=== PATIENT | female | born 1995 | race Caucasian/White ===

== ENCOUNTER 2024-06-17 19:01 | Outpatient (OUT) | payer BC, SELFPAY ==
--- NOTE | 2024-06-17 19:04 | US_ITS ---
[address] [address] Patient Name: JENNIFER MORALES MRN: [id number] date: 1995 Sex: F Assigned Patient Location: [place] Current Patient Location: Accession/Order Number: [id number] Exam Date: 06/17/2024 19:09 Report Date: 06/18/2024 05:04 At the request of: WALLY BLANTON Procedure: US pelvis w/ transvaginal EXAMINATION: US pelvis w/ transvaginal HISTORY: PELVIC PAIN IN FEMALE R10.2 ; intermittent pelvic pain for one year COMPARISON: Ultrasound pelvis 11/15/2023 TECHNIQUE: Transabdominal and/or transvaginal sonographic examination was performed as indicated by examination type. FINDINGS: UTERUS: Normal size and appearance. Uterus size: 8.0 x 4.3 x 4.8 cm ENDOMETRIUM: IUD within fundal endometrial cavity. Normal thickness and echogenicity. Endometrial thickness: 6 mm RIGHT OVARY: Normal size and appearance. Duplex Doppler demonstrates normal waveform and flow; resistive index 0.5. Ovary size: 2.4 x 1.9 x 1.9 cm LEFT OVARY: Contains a 2.0 cm cyst. Duplex Doppler demonstrates normal waveform and flow; resistive index 0.6. Ovary size: 4.2 x 2.9 x 3.7 cm CUL-DE-SAC: Unremarkable. No significant free fluid. BLADDER: Unremarkable. OTHER: None. US/US pelvis w/ transvaginal IMPRESSION: 1. No specific findings to account for patient's symptoms. 2. Left ovary contains a 2.0 cm benign-appearing cyst of questionable clinical significance. 3. IUD within endometrial cavity. Electronically authenticated by: AYLEEN GAUTAM Date: 06/18/2024 05:04
== END 2024-06-17 19:02 | disposition home or self-care (01) ==
LOC: US 19:01
PROVIDERS: Visit Provider Obstetrics & Gynecology
DX: R10.2 Pelvic and perineal pain (principal); N83.202 Unspecified ovarian cyst, left side
CPT/HCPCS: 76830; 76856

== ENCOUNTER 2024-07-13 09:50 | Outpatient (OUT) | payer BC, SELFPAY ==
--- NOTE | 2024-07-13 10:27 | XR_ITS ---
[address] [address] Patient Name: JENNIFER MORALES MRN: [id number] date: 1995 Sex: F Assigned Patient Location: [facility] Current Patient Location: [facility] Accession/Order Number: [id number] Exam Date: 07/13/2024 10:40 Report Date: 07/13/2024 12:43 At the request of: WALLY BLANTON Procedure: XR chest 2V PROCEDURE: XR chest 2V DATE: 07/13/2024 10:40 AM EST COMPARISONS: None. CLINICAL INDICATION: 29 years Female Preop exam FINDINGS: The heart and mediastinum are within normal limits. The lungs are clear. There is no evidence of pleural effusion or pneumothorax. XR/XR chest 2V IMPRESSION: Chest radiograph is within normal limits. Electronically authenticated by: BECCA PEPPER Date: 07/13/2024 12:43
== END 2024-07-13 09:51 | disposition home or self-care (01) ==
LOC: PST 09:52
PROVIDERS: Visit Provider Obstetrics & Gynecology
DX: Z01.810 Encounter for preprocedural cardiovascular examination (principal); R10.2 Pelvic and perineal pain; N94.10 Unspecified dyspareunia
CPT/HCPCS: 71046

== ENCOUNTER 2024-09-28 09:49 | Outpatient (OUT) | payer BC, SELFPAY ==
--- NOTE | 2024-09-28 10:40 | P.GSHP_ITS ---
History of Present Illness History of Present Illness Chief complaint: pelvic pain, dyspareunia Narrative: Mary Dee 29-year-old female presents to presurgical testing diagnostic laparoscopy, possible GUDELIA, possible FOE and possible BSO for complaints of intermittent pelvic pain, vaginal pain and dyspareunia. Review of Systems ROS Narrative REVIEW OF SYSTEMS: Negative except as stated in HPI, ten or more systems reviewed. Constitutional: No fever, chills, weakness ENT: No sore throat or epistaxis Cardiovascular: No edema, chest pain, palpitations, or activity intolerance Respiratory: No shortness of breath, cough, or wheezing Musculoskeletal: No joint pain or swelling Gastrointestinal: No abdominal pain, constipation, diarrhea, or vomiting Genitourinary: No dysuria or hematuria reports intermittent pelvic pain, vaginal pain and pain with intercourse Neurological: No numbness, tingling, weakness, or headache Psychiatric: No mood changes PFSH PFSH Medical History Vaginal pain ?R10.2 - Pelvic and perineal pain (ICD-10) Dyspareunia Pelvic pain ?R10.2 - Pelvic and perineal pain (ICD-10) Back pain ?M54.9 - Dorsalgia, unspecified (ICD-10) hemorrhage ?O72.1 - Other immediate hemorrhage (ICD-10) History of blood transfusion ?Z92.89 - Personal history of other medical treatment (ICD-10) Anemia ?D64.9 - Anemia, unspecified (ICD-10) Depression ?F32.A - Depression, unspecified (ICD-10) Panic attacks ?F41.0 - Panic disorder [episodic paroxysmal anxiety] (ICD-10) Anxiety ?F41.9 - Anxiety disorder, unspecified (ICD-10) Electronic cigarette use ?Z78.9 - Other specified health status (ICD-10) Asthma ?J45.909 - Unspecified asthma, uncomplicated (ICD-10) COVID-19 (07/09/24) ?U07.1 - COVID-19 (ICD-10) Migraine ?G43.909 - Migraine, unspecified, not intractable, without status migrainosus (ICD-10) Urinary tract infection ?N39.0 - Urinary tract infection, site not specified (ICD-10) Heartburn ?R12 - Heartburn (ICD-10) Sepsis (2015) ?A41.9 - Sepsis, unspecified organism (ICD-10) Heart murmur (2015) ?R01.1 - Cardiac murmur, unspecified (ICD-10) Surgical History History of wisdom tooth extraction ?K08.409 - Partial loss of teeth, unspecified cause, unspecified class (ICD- 10) Family History Other Cancer Family history of diabetes mellitus Family history of hypertension Family history of myocardial infarction Family history of seizures Social History Within the past year, how often did you have a drink containing alcohol: 2-4 times a month Do you use any of these nicotine containing products: e-cigarettes and vaping products Non-prescribed substance use: cannabis (any form) Previous occupational history: [employer] Highest level of school completed/degree received: Associate degree: academic program Meds Home Medications and Allergies Home Medications ?Medication ?Instructions ?Recorded ?Confirmed ?Type levonorgestrel 1 device intrauterine 07/13/24 History Allergies Allergy/AdvReac Type Severity Reaction Status Date / Time amoxicillin Allergy Rash Verified 09/28/24 10:05 Exam Narrative Exam Narrative: Constitutional: Awake, alert, comfortable, well-appearing, nontoxic, in teractive, vital signs as charted Head: Normocephalic, atraumatic Eyes: Conjunctiva and lids normal to inspection, pupils normal ENT: Tympanic membranes pearly garcia, nonerythematous, noninjected, naris patent, posterior oropharynx clear, oral mucosa moist Neck: Supple, normal appearance, normal range of motion, no meningeal signs, no lymphadenopathy Respiratory: No respiratory distress, breath sounds clear Cardiovascular: Regular rate and rhythm, strong and regular heart tones Abdomen: Nontender, normal bowel sounds, soft, no CVA tenderness Musculoskeletal: Normal gait, no swelling or edema Skin: No rashes or induration, no lesions, only visible skin inspected Neuro: No neurological deficits, normal sensation Psychiatric: Oriented ?3, normal affect Assessment and Plan Assessment and Plan (1) Vaginal pain: (2) Dyspareunia: (3) Pelvic pain: Plan With complaints of pelvic pain, dyspareunia and vaginal pain she is scheduled with Dr. Marie for diagnostic laparoscopy, possible GUDELIA possible 08 and possible BSO on October 09, 2024
--- NOTE | 2024-09-28 10:43 | P.GSHP_ITS ---
History of Present Illness History of Present Illness Chief complaint: pelvic pain, dyspareunia [facility] Medical History Vaginal pain ?R10.2 - Pelvic and perineal pain (ICD-10) Dyspareunia Pelvic pain ?R10.2 - Pelvic and perineal pain (ICD-10) Back pain ?M54.9 - Dorsalgia, unspecified (ICD-10) hemorrhage ?O72.1 - Other immediate hemorrhage (ICD-10) History of blood transfusion ?Z92.89 - Personal history of other medical treatment (ICD-10) Anemia ?D64.9 - Anemia, unspecified (ICD-10) Depression ?F32.A - Depression, unspecified (ICD-10) Panic attacks ?F41.0 - Panic disorder [episodic paroxysmal anxiety] (ICD-10) Anxiety ?F41.9 - Anxiety disorder, unspecified (ICD-10) Electronic cigarette use ?Z78.9 - Other specified health status (ICD-10) Asthma ?J45.909 - Unspecified asthma, uncomplicated (ICD-10) COVID-19 (07/09/24) ?U07.1 - COVID-19 (ICD-10) Migraine ?G43.909 - Migraine, unspecified, not intractable, without status migrainosus (ICD-10) Urinary tract infection ?N39.0 - Urinary tract infection, site not specified (ICD-10) Heartburn ?R12 - Heartburn (ICD-10) Sepsis (2014) ?A41.9 - Sepsis, unspecified organism (ICD-10) Heart murmur (2014) ?R01.1 - Cardiac murmur, unspecified (ICD-10) Surgical History History of wisdom tooth extraction ?K08.409 - Partial loss of teeth, unspecified cause, unspecified class (ICD- 10) Family History Other Cancer Family history of diabetes mellitus Family history of hypertension Family history of myocardial infarction Family history of seizures Social History Within the past year, how often did you have a drink containing alcohol: 2-4 times a month Do you use any of these nicotine containing products: e-cigarettes and vaping products Non-prescribed substance use: cannabis (any form) Previous occupational history: [employer] Highest level of school completed/degree received: Associate degree: academic program Meds Home Medications and Allergies Home Medications ?Medication ?Instructions ?Recorded ?Confirmed ?Type levonorgestrel 1 device intrauterine 07/13/24 History Allergies Allergy/AdvReac Type Severity Reaction Status Date / Time amoxicillin Allergy Rash Verified 09/28/24 10:05 Assessment and Plan Assessment and Plan (1) Vaginal pain: (2) Dyspareunia: (3) Pelvic pain: Plan With complaints of pelvic pain, dyspareunia and vaginal pain she is scheduled with Dr. Marie for diagnostic laparoscopy, possible GUDELIA possible 08 and possible BSO on October 09, 2024
== END 2024-09-28 09:50 | disposition home or self-care (01) ==
LOC: PST 09:51
PROVIDERS: Visit Provider Obstetrics & Gynecology
DX: Z01.818 Encounter for other preprocedural examination (principal); R10.2 Pelvic and perineal pain; N94.10 Unspecified dyspareunia
CPT/HCPCS: G0463

== ENCOUNTER 2024-10-09 07:21 | Day surgery (SDC) | payer BC, SELFPAY ==
[2024-07-13 10:31] VITALS: BP 112/73; PULSE 82; TEMP 36.3; O2SAT 100; BMI 25.0
[2024-09-28 10:08] VITALS: BP 120/79; PULSE 86; TEMP 36.4; O2SAT 100; BMI 25.2
[2024-10-09] VITALS (11 sets, daily range): BP systolic 93–126; BP diastolic 49–82; PULSE 70–105; TEMP 35.9–36.4; O2SAT 95–100; BMI 25.2
[2024-10-09 07:30] LABS: Basophils Percent Auto 0.3 % (0.2-2.0); Eosinophils Absolute Auto 0.1 10^3/uL (0.0-0.7); Eosinophils Percent Auto 1.5 % (0.9-7.0); Hematocrit 40.3 % (36.0-48.0); Hemoglobin 13.3 g/dL (12.0-16.0); Immature Granulocytes Abs Auto 0.02 10^3/uL (0.00-0.03); Immature Granulocytes Pct Auto 0.2 % (0.0-0.5); Lymphocytes Absolute Auto 2.4 10^3/uL (1.2-3.8); Lymphocytes Percent Auto 25.3 % (20.5-60.0); Mean Corpuscular Hemoglobin 30.9 pg (26.7-34.0); Mean Corpuscular Volume 93.7 fL (81.0-99.0); Mean Platelet Volume 11.9 fL (9.5-13.5); Monocytes Absolute Auto 0.6 10^3/uL (0.3-0.8); Monocytes Percent Auto 6.7 % (1.7-12.0); Neutrophils Absolute Auto 6.2 10^3/uL (1.4-6.5); Platelet Count 234 10^3/uL (150-450); Red Cell Distribution Width 12.3 % (11.0-15.0); White Blood Count 9.4 10^3/uL (4.0-11.0)
[2024-10-09] MEDS: LACTATED RINGER'S SOLUTION 1,000 ML 50 ML IV ×2 (07:56→10:14)
[2024-10-09 08:11] LABS: HCG Quantitative <1 mIU/mL
--- NOTE | 2024-10-09 10:16 | PM.ONB ---
Brief Operative Note Date of procedure: 10/09/24 Pre-op diagnosis general: pelvic pain Post-op diagnosis: other (rupture hemorrhagic cyst) Procedure: NAME OF PROCEDURE: [diagnostic laparoscopy ] findings: hemorrhagic cyst PROCEDURE: The patient was taken back to the Operating Room where she was placed in dorsal lithotomy position after given general anesthesia. The patient was prepped and draped in normal sterile fashion. A sponge stick was placed into the patient's vagina. Attention was turned to the patient's abdomen, where a small umbilical incision was made. The fascia was tented using Chanell clamps and the fascia was entered sharply. Confirmation of intraabdominal placement of the 10 mm port was confirmed under direct visualization using a laparoscope. The patient's abdomen was then insufflated using CO2 gas with approximately 4 liters. A second port was placed left laterally, this was done under direct visualization with a 5 mm port. Survey of the patient's abdomen demonstrated normal liver and gallbladder. Survey of the patient's pelvic anatomy demonstrated normal appearing rt and lt ovary and tubes as well as normal appearing uterus. significant blood in the pelvis suggestive of recent rupture of hemorrhagic cyst No endometrial implants could be noted, no evidence of any pelvic disease was seen, normal appearing pelvic cavity. All instruments were removed from the patient's abdomen. The patient's abdomen was deinsufflated of CO2 gas. The patient tolerated the procedure well. Sponge stick was removed from the patient's vagina. The patient's infraumbilical fascia was closed using #0 Vicryl on a GI needle. The patient's skin was closed laterally and infraumbilically using 4-0 Vicryl. The patient tolerated the procedure well. Sponge, lap and needle counts were correct x 2. The patient was taken to Recovery Room in stable condition. Anesthesia: SINGH Surgeon: Tigre Marie Consumer Loan Officer: Laurel Gutierrez Estimated blood loss (mL): 5 Pathology: none sent Condition: stable Disposition: PACU Urinary Catheter Management Urinary Catheter Management Urethral: Cath placed during this visit: no
[2024-10-09] MEDS: HYDROMORPHONE HCL 0.5 MG/0.5 ML SYRINGE IVP (10:55)
--- NOTE | 2024-10-09 11:09 | PC.NURSE ---
Medicated with Dilaudid for surgical pain; given warm pack to abdomen
[2024-10-09] MEDS: HYDROCODONE/ACET 5-325 MG TABLET 1 TAB PO (11:16)
== END 2024-10-09 12:54 | disposition home or self-care (01) ==
PROVIDERS: Visit Provider Obstetrics & Gynecology
PROC: (CPT 840; principal; 2024-10-09 08:50)
DX: R10.2 Pelvic and perineal pain (principal); N94.10 Unspecified dyspareunia; N83.209 Unspecified ovarian cyst, unspecified side; F17.290 Nicotine dependence, other tobacco product, uncomplicated; J45.909 Unspecified asthma, uncomplicated; K21.9 Gastro-esophageal reflux disease without esophagitis
CPT/HCPCS: 49320; 36415; 84702; 85025; J1100; J1171; J1885; J2250; J2704; J3010